=== PATIENT | male | born 1995 | race Caucasian/White ===

== ENCOUNTER → 2017-11-07 | Outpatient (CLI) | payer OTHER | END | disposition home or self-care (01) | LOC: PCVCIMAG 15:33 | DX: I45.10 Unspecified right bundle-branch block (principal); E78.01 Familial hypercholesterolemia; I47.1 Supraventricular tachycardia; Z82.49 Family history of ischemic heart disease and other diseases of the circulatory system | CPT/HCPCS: 80061; 93005; 93017; 93306; G0463 ==